=== PATIENT | female | born 1930 | race African-American/Black ===

== ENCOUNTER 2017-12-08 10:26 | Emergency (ER) | payer BC ==
[~2017-12-08] VITALS: Ht 157.5 cm; Wt 66.0 kg
[~2017-12-08 10:26] MED LIST: ASPI-1159 PO; CHOL100044 PO; LOSA100T3 PO; METO-539 PO; MV,1TABL8 PO; POTA8CAP10 PO; SIMV10TA6 PO; SOTA80TA PO; TRIA1TAB94 PO
[2017-12-08 10:40] VITALS: BP 143/66
[2017-12-08] MEDS ORDERED: IBUPROFEN 800MG TABLET PO ONE (11:15)
== END 2017-12-08 11:37 | disposition home or self-care (01) ==
LOC: ER 11:33
DX: H66.91 Otitis media, unspecified, right ear (principal); I10 Essential (primary) hypertension; E78.00 Pure hypercholesterolemia, unspecified; Z79.82 Long term (current) use of aspirin; Z95.0 Presence of cardiac pacemaker; Z90.710 Acquired absence of both cervix and uterus
CPT/HCPCS: 99283

== ENCOUNTER 2018-01-08 19:57 | Emergency (ER) | payer BC ==
[~2018-01-08] VITALS: Ht 157.5 cm; Wt 63.0 kg
[2018-01-09 00:29] VITALS: BP 158/72
== END 2018-01-09 01:39 | disposition home or self-care (01) ==
LOC: ER 20:56
DX: M17.11 Unilateral primary osteoarthritis, right knee (principal); I10 Essential (primary) hypertension; E11.9 Type 2 diabetes mellitus without complications; Z86.73 Personal history of transient ischemic attack (TIA), and cerebral infarction without residual deficits; Z79.82 Long term (current) use of aspirin
CPT/HCPCS: 72192; 73700; 93005; 99284

== ENCOUNTER 2018-06-25 20:26 | Inpatient (IN) | payer BC ==
[~2018-06-25] VITALS: Ht 157.5 cm; Wt 62.7 kg
[~2018-06-25 20:26] MED LIST changes: -ASPI-1159 PO; +FLUT15.88 BOTHNSTRLS
[2018-06-25 22:33] LABS: HEMATOCRIT. 41.2 % (36.0-48.0); HEMOGLOBIN. 13.5 g/dL (12.0-16.0); MEAN CORPUSCULAR HEMOGLOBIN 28.6 pg (28.0-32.0); MEAN CORPUSCULAR VOLUME 87.2 fL (81.0-99.0); MEAN PLATELET VOLUME 9.4 fl (7.4-10.4); PLATELET 246 x1000/uL (130-400); RED BLOOD CELL COUNT 4.72 mill/uL (4.2-5.4); RED CELL DISTRIBUTION WIDTH 14.4 % (11.6-14.6)
[2018-06-25 22:36] LABS: CHLORIDE 96 mEq/L (98-107)
[2018-06-25 22:39] LABS: ETHANOL BLOOD < 10 mg/dL
[2018-06-25 22:48] LABS: PLATELET ESTIMATE NORMAL
[2018-06-26 01:04] LABS: CLARITY URINE CLEAR (CLEAR); COLOR URINE YELLOW (YELLOW); KETONES URINE TRACE (NEGATIVE); LEUKOCYTE ESTERASE URINE 1+ (NEGATIVE); NITRITE URINE NEGATIVE (NEGATIVE); OCCULT BLOOD URINE 1+ (NEGATIVE); PH URINE 6.5 (4.5-8.0); PROTEIN URINE NEGATIVE (NEGATIVE); UROBILINOGEN URINE 0.2 E.U./dL (0.2-1.0)
[2018-06-26 01:14] LABS: *AMPHETAMINES SCREEN URINE NEGATIVE (NEGATIVE); *BARBITURATES SCREEN URINE NEGATIVE (NEGATIVE); CANNABINOID URINE SCREEN NEGATIVE (NEGATIVE); OPIATES URINE SCREEN NEGATIVE (NEGATIVE); PHENCYCLIDINE URINE SCREEN NEGATIVE (NEGATIVE)
[2018-06-26 01:16] LABS: *BENZODIAZEPINES SCREEN URINE NEGATIVE (NEGATIVE); *COCAINE SCREEN URINE NEGATIVE (NEGATIVE); METHADONE URINE SCREEN NEGATIVE (NEGATIVE)
[2018-06-26] MEDS ORDERED: SODIUM CHLORIDE 0.9% 1,000 ML IV SCH (02:22)
[2018-06-26] MEDS ORDERED: ONDANSETRON HCL 4MG/2ML INJ IV PRN (14:00)
[2018-06-26] MEDS ORDERED: HYDROCODONE/ACETAMINOPHEN 5/325MG TABLET PO PRN (14:00)
[2018-06-26] MEDS ORDERED: CLONIDINE 0.1MG TABLET PO PRN (14:00)
[2018-06-26 15:20] VITALS: BP 121/58
[2018-06-26] MEDS ORDERED: DIATR MEGLU/DIATRIZOATE SOLN 30ML PO SCH (16:00)
[2018-06-26] MEDS: LOSARTAN POTASSIUM 100 MG TABLET PO SCH (17:30)
[2018-06-26 17:46] LABS: CHLORIDE 103 mEq/L (98-107)
[2018-06-26] MEDS: LEVOFLOXACIN 250MG PREMIX 50 ML IV SCH (17:52)
[2018-06-26 17:56] LABS: CREATINE KINASE 62 IU/L (26-192)
[2018-06-26] MEDS ORDERED: LEVOFLOXACIN 500MG PREMIX 100 ML IV NR (18:00)
[2018-06-26 20:00] VITALS: BP 146/58
[2018-06-26] MEDS ORDERED: IOHEXOL-300 100 ML BOTTLE ONE (20:19)
[2018-06-26] MEDS: ATORVASTATIN CALCIUM 10MG TABLET PO SCH (21:37)
[2018-06-26] MEDS: METRONIDAZOLE 500 MG PREMIX 100 ML IV SCH (21:37)
[2018-06-26] MEDS: ASPIRIN 81MG TABLET PO SCH (22:00)
[2018-06-26] MEDS: SOTALOL HCL 80MG TABLET PO SCH (23:02)
[2018-06-27] VITALS: BP 123/94
[2018-06-27 00:08] LABS: BASOPHILS % 0.3 % (0.0-2.0); EOSINOPHILS % 0.1 % (0.0-5.0); HEMATOCRIT. 38.9 % (36.0-48.0); HEMOGLOBIN. 12.5 g/dL (12.0-16.0); LYMPHOCYTES % 8.1 % (20.0-50.0); MEAN CORPUSCULAR HEMOGLOBIN 28.3 pg (28.0-32.0); MEAN CORPUSCULAR VOLUME 87.9 fL (81.0-99.0); MEAN PLATELET VOLUME 10.3 fl (7.4-10.4); MONOCYTES % 7.7 % (2.0-8.0); NEUTROPHILS % 83.8 % (40.0-76.0); PLATELET 206 x1000/uL (130-400); RED BLOOD CELL COUNT 4.43 mill/uL (4.2-5.4); RED CELL DISTRIBUTION WIDTH 14.6 % (11.6-14.6)
[2018-06-27 00:30] LABS: CREATINE KINASE 69 IU/L (26-192)
[2018-06-27 05:23] VITALS: BP 166/66
[2018-06-27] MEDS: METRONIDAZOLE 500 MG PREMIX 100 ML IV SCH ×2 (06:37→20:40)
[2018-06-27 08:06] LABS: BASOPHILS % 0.2 % (0.0-2.0); EOSINOPHILS % 0.5 % (0.0-5.0); HEMATOCRIT. 35.6 % (36.0-48.0); HEMOGLOBIN. 11.6 g/dL (12.0-16.0); LYMPHOCYTES % 10.6 % (20.0-50.0); MEAN CORPUSCULAR HEMOGLOBIN 28.4 pg (28.0-32.0); MEAN CORPUSCULAR VOLUME 86.9 fL (81.0-99.0); MEAN PLATELET VOLUME 9.5 fl (7.4-10.4); NEUTROPHILS % 77.7 % (40.0-76.0); PLATELET 191 x1000/uL (130-400); RED BLOOD CELL COUNT 4.09 mill/uL (4.2-5.4); RED CELL DISTRIBUTION WIDTH 14.5 % (11.6-14.6)
[2018-06-27 08:07] LABS: CHLORIDE 104 mEq/L (98-107)
[2018-06-27 08:16] VITALS: BP 153/61
[2018-06-27 08:17] LABS: LDL CHOLESTEROL 46 mg/dL (5-100)
[2018-06-27 08:18] LABS: HDL CHOLESTEROL 46 mg/dL (40-59); T4 FREE 1.24 ng/dL (0.76-1.46)
[2018-06-27] MEDS: ASPIRIN 81MG TABLET PO SCH ×2 (09:00→09:29)
[2018-06-27] MEDS: TRIAMTERENE/HYDROCHLOROTHIAZIDE 37.5/25MG CAPSULE PO SCH (09:28)
[2018-06-27] MEDS: PANTOPRAZOLE SODIUM 40 MG/VIAL IV SCH (09:28)
[2018-06-27] MEDS: ACETAMINOPHEN 325MG TABLET PO PRN ×2 (09:28→15:14)
[2018-06-27] MEDS: LOSARTAN POTASSIUM 100 MG TABLET PO SCH (09:29)
[2018-06-27] MEDS: METOPROLOL TARTRATE 50MG TABLET PO SCH (09:30)
[2018-06-27] MEDS: SOTALOL HCL 80MG TABLET PO SCH ×2 (09:30→20:41)
[2018-06-27 13:07] VITALS: BP 120/58
[2018-06-27] MEDS: LEVOFLOXACIN 250MG PREMIX 50 ML IV SCH (15:15)
[2018-06-27 16:27] VITALS: BP 116/47
[2018-06-27] MEDS ORDERED: POTASSIUM CHLORIDE 20MEQ TABLET SR PO NR (17:45)
[2018-06-27 20:00] VITALS: BP 159/72
[2018-06-27] MEDS: ATORVASTATIN CALCIUM 10MG TABLET PO SCH (21:00)
[2018-06-28] VITALS (7 sets, daily range): BP systolic 110–165; BP diastolic 53–70
[2018-06-28] MEDS: METRONIDAZOLE 500 MG PREMIX 100 ML IV SCH ×3 (05:04→14:53)
[2018-06-28 07:51] LABS: BASOPHILS % 0.5 % (0.0-2.0); EOSINOPHILS % 1.9 % (0.0-5.0); HEMATOCRIT. 35.4 % (36.0-48.0); HEMOGLOBIN. 11.9 g/dL (12.0-16.0); LYMPHOCYTES % 19.9 % (20.0-50.0); MEAN CORPUSCULAR VOLUME 86.6 fL (81.0-99.0); MEAN PLATELET VOLUME 9.9 fl (7.4-10.4); MONOCYTES % 13.3 % (2.0-8.0); NEUTROPHILS % 64.4 % (40.0-76.0); PLATELET 216 x1000/uL (130-400); RED BLOOD CELL COUNT 4.09 mill/uL (4.2-5.4); RED CELL DISTRIBUTION WIDTH 14.5 % (11.6-14.6)
[2018-06-28 08:49] LABS: CHLORIDE 104 mEq/L (98-107)
[2018-06-28] MEDS: ASPIRIN 81MG TABLET PO SCH (09:00)
[2018-06-28] MEDS: METOPROLOL TARTRATE 50MG TABLET PO SCH (09:00)
[2018-06-28] MEDS: SOTALOL HCL 80MG TABLET PO SCH (09:00)
[2018-06-28] MEDS: TRIAMTERENE/HYDROCHLOROTHIAZIDE 37.5/25MG CAPSULE PO SCH (09:07)
[2018-06-28] MEDS: LOSARTAN POTASSIUM 100 MG TABLET PO SCH (09:08)
[2018-06-28] MEDS: PANTOPRAZOLE SODIUM 40 MG/VIAL IV SCH (09:08)
[2018-06-28] MEDS: LEVOFLOXACIN 250MG PREMIX 50 ML IV SCH (14:53)
[2018-06-28] MEDS ORDERED: LACTULOSE 20G/30ML UDC PO NR (16:00)
[2018-06-28] MEDS ORDERED: BISACODYL 5MG TABLET PO NR (16:03)
== END 2018-06-28 22:00 | disposition home or self-care (01) | DRG 371 ==
LOC: ER 21:38 → 6WST 06-26 02:24 → EDBEDREQ 06-26 02:28 → EDBEDREQTM 06-26 02:28 → ENRESERV 06-26 14:06
PROVIDERS: ADMIT Internal Medicine; ATTEND Internal Medicine
DX: K65.1 Peritoneal abscess (principal); G93.41 Metabolic encephalopathy; G45.9 Transient cerebral ischemic attack, unspecified; N39.0 Urinary tract infection, site not specified; K63.0 Abscess of intestine; E78.5 Hyperlipidemia, unspecified; E86.0 Dehydration; E87.6 Hypokalemia; I11.0 Hypertensive heart disease with heart failure; K44.9 Diaphragmatic hernia without obstruction or gangrene; I50.9 Heart failure, unspecified; K80.20 Calculus of gallbladder without cholecystitis without obstruction; K52.9 Noninfective gastroenteritis and colitis, unspecified; K59.00 Constipation, unspecified; R73.9 Hyperglycemia, unspecified; K57.90 Diverticulosis of intestine, part unspecified, without perforation or abscess without bleeding; M40.209 Unspecified kyphosis, site unspecified; Z86.73 Personal history of transient ischemic attack (TIA), and cerebral infarction without residual deficits; Z90.710 Acquired absence of both cervix and uterus; Z95.0 Presence of cardiac pacemaker; Z79.899 Other long term (current) drug therapy
CPT/HCPCS: 36415; 70450; 71045; 74176; 74177; 80048; 80053; 80061; 80305; 81003; 82550; 83036; 83605; 84439; 84443; 84484; 85025; 87040; 93005; 93970; 96360; 96361; 97162; 99285; C1893; C9113; G0482; J1956; J3490; J7030; J7050; Q9963; Q9967

== ENCOUNTER 2019-03-15 16:23 | Emergency (ER) | payer BC ==
[~2019-03-15] VITALS: Ht 157.5 cm; Wt 62.0 kg
[2019-03-15] MEDS ORDERED: ACETAMINOPHEN 325MG TABLET PO ONE (19:30)
[2019-03-15 21:23] VITALS: BP 167/68
== END 2019-03-15 21:31 | disposition home or self-care (01) ==
LOC: ER 16:23
DX: S09.8XXA Other specified injuries of head, initial encounter (principal); W01.198A Fall on same level from slipping, tripping and stumbling with subsequent striking against other object, initial encounter; Y93.89 Activity, other specified; Y92.091 Bathroom in other non-institutional residence as the place of occurrence of the external cause; I10 Essential (primary) hypertension
CPT/HCPCS: 71045; 99284